=== PATIENT | female | born 1935 | race African-American/Black ===

== ENCOUNTER 2018-04-02 21:20 | Inpatient (IN) ==
[2018-04-02] MEDS ORDERED: SODIUM CHLORIDE 0.9% 500 ML IV STA ×2 (21:55)
[2018-04-02 22:59] LABS: Basophils # 0.1 10*3/uL (0.0-0.2); Basophils % 0.8 % (0.0-0.8); Eosinophils # 0.1 10*3/uL (0.0-0.87); Eosinophils % 0.7 % (0.00-10.9); Hematocrit 38.8 VOL% (35.7-47.0); Hemoglobin 12.9 GM/DL (12.0-16.0); Immature Granulocytes % 0.5 %; Immature Granulocytes Absolute 0.04 #; Lymphocytes # 1.7 10*3/uL (1.4-4.0); Lymphocytes % 19.5 % (21.3-54.2); Mean Corpuscular HGB Conc 33.2 GM/DL (32-36); Mean Corpuscular Hemoglobin 30 PG (27-34); Mean Corpuscular Volume 89.2 FL (87-102); Mean Platelet Volume 9.8 FL (9.6-12.0); Monocytes # 0.5 10*3/uL (0.11-0.8); Monocytes % 5.5 % (1.7-12.7); Neutrophils # 6.4 10*3/uL (1.4-7.4); Platelet Count 353 T/CUMM (130-400); Red Blood Count 4.35 MC/CUMM (3.8-5.5); Red Cell Distribution Width 12.9 % (9.3-17.3); White Blood Count 8.7 T/CUMM (4-12)
[2018-04-02 23:06] LABS: PT Patient Result 10.3 SECS
[2018-04-02 23:14] LABS: Ammonia < 10 UMOL/L (11-32)
[2018-04-02 23:19] LABS: Alanine Aminotransferase 16 U/L (13-56); Albumin 3.8 G/DL (3.4-5.0); Alkaline Phosphatase 78 U/L (45-117); Aspartate Amino Transferase 35 U/L (0-37); Blood Urea Nitrogen 17 MG/DL (7-18); Calcium 9.9 MG/DL (8.5-10.1); Glucose 94 MG/DL (74-106); Osmolality,Calculated 280.4 MOS/KG (273-304); Potassium 3.8 MMOL/L (3.5-5.1); Sodium 140 MMOL/L (136-145); Total Protein 7.2 G/DL (6.4-8.3)
[2018-04-02 23:39] LABS: Apearance,Urine CLOUDY (Clear); Bacteria,Urine Many /HPF (Few); Bilirubin,Urine Negative (Negative); Blood, Urine Moderate mg/dL (Negative); Glucose,Urine (UA) Negative (Negative); Ketones,Urine Negative (Negative); Mucus,Urine Occasional /LPF (Occasional); Nitrite,Urine Negative (Negative); Protein,Urine Negative; RBC,Urine 3 /HPF (0-4); Urine Color Yellow (Yellow); Urine Specific Gravity 1.008 (1.001-1.035); WBC,Urine 67 /HPF (0-6)
[2018-04-02] MEDS ORDERED: LEVOFLOXACIN INJ 500 MG in PREMIX 1 EACH IV STA (23:51)
[2018-04-02] MEDS ORDERED: cefTRIAXone 1,000 MG in SODIUM CHLORIDE 0.9% 100 ML IV STA (23:51)
[2018-04-03] MEDS ORDERED: cefTRIAXone 1,000 MG in SYRINGE 1 EACH IV STA (00:06)
[2018-04-03] MEDS ORDERED: DEXTROSE 50% 25 GM/50 ML VIAL IV PRN (01:50)
[2018-04-03] MEDS ORDERED: GLUCAGON 1 MG VIAL IM PRN (01:50)
[2018-04-03] MEDS ORDERED: ACETAMINOPHEN 325 MG TABLET PO PRN (01:50)
[2018-04-03] MEDS ORDERED: ONDANSETRON 4 MG/2 ML VIAL IV PRN (01:50)
[2018-04-03] MEDS ORDERED: INFLUENZA VIRUS VACCINE 0.5 ML SYRINGE IM ONE (01:57)
[2018-04-03] MEDS: SODIUM CHLORIDE 0.9% 1,000 ML IV SCH ×3 (02:00→21:45)
[2018-04-03] MEDS ORDERED: PNEUMOCOCCAL VACCINE (13 VALENT) 0.5 ML SYRINGE IM ONE (02:01)
[2018-04-03 06:05] LABS: Basophils # 0.1 10*3/uL (0.0-0.2); Basophils % 0.6 % (0.0-0.8); Eosinophils # 0.1 10*3/uL (0.0-0.87); Eosinophils % 0.9 % (0.00-10.9); Hematocrit 33.9 VOL% (35.7-47.0); Immature Granulocytes % 0.3 %; Immature Granulocytes Absolute 0.02 #; Lymphocytes # 1.9 10*3/uL (1.4-4.0); Lymphocytes % 24.7 % (21.3-54.2); Mean Corpuscular HGB Conc 32.4 GM/DL (32-36); Mean Corpuscular Hemoglobin 29 PG (27-34); Mean Platelet Volume 10.3 FL (9.6-12.0); Monocytes # 0.5 10*3/uL (0.11-0.8); Monocytes % 6.3 % (1.7-12.7); Neutrophils # 5.2 10*3/uL (1.4-7.4); Neutrophils % 67.2 % (38.7-73.9); Platelet Count 316 T/CUMM (130-400); Red Blood Count 3.81 MC/CUMM (3.8-5.5); Red Cell Distribution Width 12.9 % (9.3-17.3); White Blood Count 7.7 T/CUMM (4-12)
[2018-04-03 06:38] LABS: Bilirubin,Total 1.1 MG/DL (0.2-1.0); Calcium 9.7 MG/DL (8.5-10.1); Osmolality,Calculated 278.4 MOS/KG (273-304); Potassium 4.6 MMOL/L (3.5-5.1); Risk Ratio 3.21; Total Protein 6.4 G/DL (6.4-8.3); VLDL CHOLESTEROL 14.4 MG/DL
[2018-04-03] MEDS: INSULIN REGULAR 100 UNIT/ML SUBCUT SCH ×3 (07:25→18:32)
[2018-04-03] MEDS ORDERED: cefTRIAXone 1,000 MG VIAL IM SCH (08:30)
[2018-04-03] MEDS: DOCUSATE SODIUM 100 MG CAPSULE PO SCH ×2 (09:02→20:20)
[2018-04-03] MEDS: PANTOPRAZOLE 40 MG TABLET PO SCH (09:02)
[2018-04-03] MEDS: ENOXAPARIN 40 MG/0.4 ML SYRINGE SUBCUT SCH (09:02)
[2018-04-03] MEDS: cefTRIAXone 1,000 MG VIAL IV SCH (11:16)
[2018-04-03] MEDS: traMADol 50 MG TABLET PO SCH (20:20)
[2018-04-03] MEDS: FUROSEMIDE 20 MG TABLET PO SCH (20:20)
[2018-04-03] MEDS: FLUOCINONIDE E 0.05% CREAM 15 GM TUBE TOP SCH (20:24)
[2018-04-04] MEDS ORDERED: LEVOFLOXACIN INJ 250 MG in PREMIX 1 EACH IV SCH
[2018-04-04] MEDS: INSULIN REGULAR 100 UNIT/ML SUBCUT SCH ×4 (00:19→17:42)
[2018-04-04 05:38] LABS: Basophils % 0.7 % (0.0-0.8); Eosinophils # 0.2 10*3/uL (0.0-0.87); Eosinophils % 3.1 % (0.00-10.9); Hematocrit 29.3 VOL% (35.7-47.0); Hemoglobin 9.6 GM/DL (12.0-16.0); Immature Granulocytes % 0.3 %; Immature Granulocytes Absolute 0.02 #; Lymphocytes # 2.1 10*3/uL (1.4-4.0); Lymphocytes % 35.3 % (21.3-54.2); Mean Corpuscular HGB Conc 32.8 GM/DL (32-36); Mean Corpuscular Hemoglobin 29 PG (27-34); Mean Corpuscular Volume 89.3 FL (87-102); Monocytes # 0.5 10*3/uL (0.11-0.8); Monocytes % 8.2 % (1.7-12.7); Neutrophils # 3.1 10*3/uL (1.4-7.4); Neutrophils % 52.4 % (38.7-73.9); Platelet Count 266 T/CUMM (130-400); Red Blood Count 3.28 MC/CUMM (3.8-5.5); White Blood Count 5.8 T/CUMM (4-12)
[2018-04-04] MEDS: SODIUM CHLORIDE 0.9% 1,000 ML IV SCH ×3 (05:47→21:04)
[2018-04-04 06:04] LABS: Albumin 2.4 G/DL (3.4-5.0); Bilirubin,Total 0.6 MG/DL (0.2-1.0); Calcium 8.5 MG/DL (8.5-10.1); Ferritin 54.5 ng/ml (8-252); Free T4 (Free Thyroxine) 1.15 NG/DL (0.76-1.46); Potassium 3.6 MMOL/L (3.5-5.1); Thyroid Stimulating Hormone 0.824 uIU/ml (0.358-3.74); Total Protein 5.5 G/DL (6.4-8.3)
[2018-04-04] MEDS: LISINOPRIL 20 MG TABLET PO SCH (08:49)
[2018-04-04] MEDS: PANTOPRAZOLE 40 MG TABLET PO SCH (08:49)
[2018-04-04] MEDS: ENOXAPARIN 40 MG/0.4 ML SYRINGE SUBCUT SCH (08:49)
[2018-04-04] MEDS: FUROSEMIDE 20 MG TABLET PO SCH ×2 (08:49→21:03)
[2018-04-04] MEDS: DOCUSATE SODIUM 100 MG CAPSULE PO SCH ×2 (08:49→21:03)
[2018-04-04] MEDS: traMADol 50 MG TABLET PO SCH ×2 (08:49→21:03)
[2018-04-04] MEDS: INSULIN NPH/REGULAR 70/30 100 UNIT/ML SUBCUT SCH (08:50)
[2018-04-04] MEDS: cefTRIAXone 1,000 MG VIAL IV SCH (09:26)
[2018-04-04] MEDS: FLUOCINONIDE E 0.05% CREAM 15 GM TUBE TOP SCH ×2 (09:27→21:04)
[2018-04-04] MEDS: methylPREDNISolone SOD SUC 40 MG/1 ML VIAL IV SCH ×2 (09:29→16:21)
[2018-04-05] MEDS: INSULIN REGULAR 100 UNIT/ML SUBCUT SCH ×4 (00:11→18:10)
[2018-04-05] MEDS: methylPREDNISolone SOD SUC 40 MG/1 ML VIAL IV SCH (00:17)
[2018-04-05] MEDS: SODIUM CHLORIDE 0.9% 1,000 ML IV SCH ×3 (01:20→20:31)
[2018-04-05 04:58] LABS: Basophils % 0.1 % (0.0-0.8); Hematocrit 30.8 VOL% (35.7-47.0); Hemoglobin 10.2 GM/DL (12.0-16.0); Immature Granulocytes % 0.4 %; Immature Granulocytes Absolute 0.03 #; Lymphocytes # 1.3 10*3/uL (1.4-4.0); Lymphocytes % 16.9 % (21.3-54.2); Mean Corpuscular HGB Conc 33.1 GM/DL (32-36); Mean Corpuscular Hemoglobin 30 PG (27-34); Mean Corpuscular Volume 89.5 FL (87-102); Monocytes # 0.3 10*3/uL (0.11-0.8); Monocytes % 4.2 % (1.7-12.7); Neutrophils # 5.8 10*3/uL (1.4-7.4); Neutrophils % 78.4 % (38.7-73.9); Platelet Count 275 T/CUMM (130-400); Red Blood Count 3.44 MC/CUMM (3.8-5.5); White Blood Count 7.4 T/CUMM (4-12)
[2018-04-05 05:18] LABS: Calcium 8.6 MG/DL (8.5-10.1); Potassium 4.2 MMOL/L (3.5-5.1)
[2018-04-05] MEDS: FLUOCINONIDE E 0.05% CREAM 15 GM TUBE TOP SCH (09:10)
[2018-04-05] MEDS: INSULIN NPH/REGULAR 70/30 100 UNIT/ML SUBCUT SCH (09:20)
[2018-04-05] MEDS: PANTOPRAZOLE 40 MG TABLET PO SCH (09:20)
[2018-04-05] MEDS: LISINOPRIL 20 MG TABLET PO SCH (09:20)
[2018-04-05] MEDS: DOCUSATE SODIUM 100 MG CAPSULE PO SCH ×2 (09:20→21:14)
[2018-04-05] MEDS: traMADol 50 MG TABLET PO SCH ×2 (09:20→21:14)
[2018-04-05] MEDS: FUROSEMIDE 20 MG TABLET PO SCH ×2 (09:20→21:15)
[2018-04-05] MEDS: ENOXAPARIN 40 MG/0.4 ML SYRINGE SUBCUT SCH (09:20)
[2018-04-05] MEDS: cefTRIAXone 1,000 MG VIAL IV SCH (13:34)
[2018-04-05] MEDS ORDERED: TUBERCULIN SKIN TEST 0.1 ML SYRINGE INTRADERM ONE (13:51)
[2018-04-06] MEDS: INSULIN REGULAR 100 UNIT/ML SUBCUT SCH ×5 (00:05→17:02)
[2018-04-06] MEDS: FLUOCINONIDE E 0.05% CREAM 15 GM TUBE TOP SCH ×3 (02:10→21:04)
[2018-04-06] MEDS: SODIUM CHLORIDE 0.9% 1,000 ML IV SCH (04:35)
[2018-04-06 05:56] LABS: Basophils # 0.1 10*3/uL (0.0-0.2); Basophils % 0.7 % (0.0-0.8); Eosinophils # 0.2 10*3/uL (0.0-0.87); Hematocrit 30.5 VOL% (35.7-47.0); Hemoglobin 9.9 GM/DL (12.0-16.0); Immature Granulocytes % 0.4 %; Immature Granulocytes Absolute 0.03 #; Lymphocytes # 2.9 10*3/uL (1.4-4.0); Mean Corpuscular HGB Conc 32.5 GM/DL (32-36); Mean Corpuscular Hemoglobin 29 PG (27-34); Mean Platelet Volume 9.2 FL (9.6-12.0); Monocytes # 0.5 10*3/uL (0.11-0.8); Monocytes % 5.9 % (1.7-12.7); Neutrophils # 4.1 10*3/uL (1.4-7.4); Platelet Count 273 T/CUMM (130-400); Red Blood Count 3.39 MC/CUMM (3.8-5.5); Red Cell Distribution Width 13.2 % (9.3-17.3); White Blood Count 7.6 T/CUMM (4-12)
[2018-04-06 06:01] LABS: Calcium 8.3 MG/DL (8.5-10.1); Potassium 4.2 MMOL/L (3.5-5.1)
[2018-04-06] MEDS: INSULIN NPH/REGULAR 70/30 100 UNIT/ML SUBCUT SCH (08:16)
[2018-04-06] MEDS: PANTOPRAZOLE 40 MG TABLET PO SCH (08:25)
[2018-04-06] MEDS: DOCUSATE SODIUM 100 MG CAPSULE PO SCH ×2 (08:25→20:19)
[2018-04-06] MEDS: ENOXAPARIN 40 MG/0.4 ML SYRINGE SUBCUT SCH (08:26)
[2018-04-06] MEDS: traMADol 50 MG TABLET PO SCH ×2 (08:26→20:19)
[2018-04-06] MEDS: FUROSEMIDE 20 MG TABLET PO SCH ×2 (08:26→20:19)
[2018-04-06] MEDS: LISINOPRIL 20 MG TABLET PO SCH (08:30)
[2018-04-06] MEDS ORDERED: FUROSEMIDE 40 MG/4 ML VIAL IV ONE (13:13)
[2018-04-06] MEDS: cefTRIAXone 1,000 MG VIAL IV SCH (17:10)
[2018-04-07 05:32] LABS: Basophils % 0.6 % (0.0-0.8); Eosinophils # 0.3 10*3/uL (0.0-0.87); Eosinophils % 3.6 % (0.00-10.9); Hematocrit 32.4 VOL% (35.7-47.0); Hemoglobin 10.5 GM/DL (12.0-16.0); Immature Granulocytes % 0.4 %; Immature Granulocytes Absolute 0.03 #; Lymphocytes # 2.7 10*3/uL (1.4-4.0); Lymphocytes % 36.9 % (21.3-54.2); Mean Corpuscular HGB Conc 32.4 GM/DL (32-36); Mean Corpuscular Hemoglobin 29 PG (27-34); Mean Platelet Volume 9.9 FL (9.6-12.0); Monocytes # 0.5 10*3/uL (0.11-0.8); Monocytes % 6.8 % (1.7-12.7); Neutrophils # 3.8 10*3/uL (1.4-7.4); Neutrophils % 51.7 % (38.7-73.9); Platelet Count 331 T/CUMM (130-400); Red Blood Count 3.64 MC/CUMM (3.8-5.5); White Blood Count 7.2 T/CUMM (4-12)
[2018-04-07 05:52] LABS: Calcium 8.5 MG/DL (8.5-10.1); Osmolality,Calculated 282.1 MOS/KG (273-304)
[2018-04-07 05:58] LABS: Albumin 2.5 G/DL (3.4-5.0); Bilirubin,Total 0.4 MG/DL (0.2-1.0); Calcium 8.4 MG/DL (8.5-10.1); Osmolality,Calculated 281.1 MOS/KG (273-304)
[2018-04-07] MEDS: INSULIN REGULAR 100 UNIT/ML SUBCUT SCH ×2 (06:30→14:37)
[2018-04-07] MEDS: INSULIN NPH/REGULAR 70/30 100 UNIT/ML SUBCUT SCH (07:18)
[2018-04-07] MEDS: LISINOPRIL 20 MG TABLET PO SCH (09:52)
[2018-04-07] MEDS: FUROSEMIDE 20 MG TABLET PO SCH ×2 (09:53→21:38)
[2018-04-07] MEDS: PANTOPRAZOLE 40 MG TABLET PO SCH (09:53)
[2018-04-07] MEDS: ENOXAPARIN 40 MG/0.4 ML SYRINGE SUBCUT SCH (09:53)
[2018-04-07] MEDS: traMADol 50 MG TABLET PO SCH ×2 (09:53→21:38)
[2018-04-07] MEDS: DOCUSATE SODIUM 100 MG CAPSULE PO SCH ×2 (09:53→21:38)
[2018-04-07] MEDS: cefTRIAXone 1,000 MG VIAL IV SCH (16:55)
[2018-04-07] MEDS: FLUOCINONIDE E 0.05% CREAM 15 GM TUBE TOP SCH ×2 (21:38→21:39)
[2018-04-08] MEDS: INSULIN REGULAR 100 UNIT/ML SUBCUT SCH ×2 (08:36→11:40)
[2018-04-08] MEDS: LISINOPRIL 20 MG TABLET PO SCH (08:38)
[2018-04-08] MEDS: DOCUSATE SODIUM 100 MG CAPSULE PO SCH (08:38)
[2018-04-08] MEDS: traMADol 50 MG TABLET PO SCH (08:38)
[2018-04-08] MEDS: FUROSEMIDE 20 MG TABLET PO SCH (08:38)
[2018-04-08] MEDS: ENOXAPARIN 40 MG/0.4 ML SYRINGE SUBCUT SCH (08:38)
[2018-04-08] MEDS: INSULIN NPH/REGULAR 70/30 100 UNIT/ML SUBCUT SCH (08:38)
[2018-04-08] MEDS: PANTOPRAZOLE 40 MG TABLET PO SCH (08:38)
[2018-04-08] MEDS ORDERED: LEVOFLOXACIN 500 MG TABLET PO SCH (09:00)
[2018-04-08] MEDS: cefTRIAXone 1,000 MG VIAL IV SCH (10:53)
[2018-04-08] MEDS: FLUOCINONIDE E 0.05% CREAM 15 GM TUBE TOP SCH (10:54)
[2018-04-08 12:06] VITALS: BP 116/60
== END 2018-04-08 13:08 | disposition swing bed (61) | DRG 690 ==
LOC: N.ED 21:20 → N.EDINP 04-03 01:03 → N.5E 04-03 01:08
PROVIDERS: ADMIT Family Medicine; ATTEND Family Medicine

== ENCOUNTER 2018-05-07 13:07 | Inpatient (IN) ==
[2018-05-07] MEDS ORDERED: SODIUM CHLORIDE 0.9% 500 ML IV STA (13:35)
[2018-05-07 14:08] LABS: Amorphous Crystals,Urine Occasional /HPF (Few); Apearance,Urine Slightly Hazy (Clear); Bacteria,Urine Occasional /HPF (Few); Bilirubin,Urine Negative (Negative); Blood, Urine Negative (Negative); Glucose,Urine (UA) Negative (Negative); Hyaline Casts,Urine 6 /LPF (0-3); Ketones,Urine Negative (Negative); Mucus,Urine Occasional /LPF (Occasional); Nitrite,Urine Negative (Negative); Protein,Urine Negative; Squamous Epithelial Cell,Urine Occasional /HPF (0-10); Urine Color Yellow (Yellow); Urine Specific Gravity 1.012 (1.001-1.035); WBC,Urine 2 /HPF (0-6)
[2018-05-07 14:37] LABS: Barbiturates Screen,Urine Negative (Negative); Benzodiazepines Screen,Urine Negative (Negative); Cannabinoid Screen,Urine Negative (Negative); Opiate Screen,Urine Negative (Negative); Phencyclidine Screen,Urine Negative (Negative)
[2018-05-07 14:46] LABS: Basophils # 0.1 10*3/uL (0.0-0.2); Basophils % 0.4 % (0.0-0.8); Eosinophils # 0.1 10*3/uL (0.0-0.87); Eosinophils % 0.5 % (0.00-10.9); Hematocrit 36.6 VOL% (35.7-47.0); Hemoglobin 11.9 GM/DL (12.0-16.0); Immature Granulocytes % 0.4 %; Immature Granulocytes Absolute 0.05 #; Lymphocytes # 1.8 10*3/uL (1.4-4.0); Lymphocytes % 14.2 % (21.3-54.2); Mean Corpuscular HGB Conc 32.5 GM/DL (32-36); Mean Corpuscular Hemoglobin 29 PG (27-34); Mean Corpuscular Volume 88.4 FL (87-102); Mean Platelet Volume 9.9 FL (9.6-12.0); Monocytes # 0.8 10*3/uL (0.11-0.8); Monocytes % 6.8 % (1.7-12.7); Neutrophils # 9.6 10*3/uL (1.4-7.4); Neutrophils % 77.7 % (38.7-73.9); Platelet Count 384 T/CUMM (130-400); Red Blood Count 4.14 MC/CUMM (3.8-5.5); Red Cell Distribution Width 12.4 % (9.3-17.3); White Blood Count 12.4 T/CUMM (4-12)
[2018-05-07 15:01] LABS: INR 0.9; PT Patient Result 10.3 SECS; Partial Thromboplastin Time 25.9 SECS (0-40)
[2018-05-07 15:08] LABS: Albumin 3.3 G/DL (3.4-5.0); Bilirubin,Total 0.6 MG/DL (0.2-1.0); Calcium 10.2 MG/DL (8.5-10.1); Osmolality,Calculated 277.2 MOS/KG (273-304); Potassium 4.8 MMOL/L (3.5-5.1); Total Protein 8.2 G/DL (6.4-8.3)
[2018-05-07] MEDS ORDERED: SODIUM CHLORIDE 0.9% 1,000 ML IV STA (15:32)
[2018-05-07] MEDS ORDERED: ONDANSETRON 4 MG/2 ML VIAL IV PRN (16:58)
[2018-05-07] MEDS ORDERED: GLUCAGON 1 MG VIAL IM PRN (16:58)
[2018-05-07] MEDS ORDERED: DEXTROSE 50% 25 GM/50 ML VIAL IV PRN (16:58)
[2018-05-07] MEDS ORDERED: ACETAMINOPHEN 325 MG TABLET PO PRN (16:58)
[2018-05-07] MEDS: SODIUM CHLORIDE 0.9% 1,000 ML IV SCH (17:44)
[2018-05-07] MEDS: INSULIN LISPRO 100 UNIT/ML SUBCUT SCH ×2 (17:44→21:56)
[2018-05-07] MEDS: DOCUSATE SODIUM 100 MG CAPSULE PO SCH (21:54)
[2018-05-08] MEDS: SODIUM CHLORIDE 0.9% 1,000 ML IV SCH ×3 (03:50→20:34)
[2018-05-08] MEDS ORDERED: traMADol 50 MG TABLET PO PRN (07:36)
[2018-05-08 08:31] LABS: Osmolality,Calculated 281.7 MOS/KG (273-304); Potassium 4.5 MMOL/L (3.5-5.1)
[2018-05-08] MEDS: INSULIN LISPRO 100 UNIT/ML SUBCUT SCH ×4 (08:46→22:58)
[2018-05-08] MEDS: INSULIN NPH/REGULAR 70/30 100 UNIT/ML SUBCUT SCH (08:47)
[2018-05-08] MEDS: LOSARTAN 50 MG TABLET PO SCH (08:48)
[2018-05-08] MEDS: hydrOXYzine HCL 10 MG TABLET PO SCH ×4 (08:48→20:35)
[2018-05-08] MEDS: FUROSEMIDE 20 MG TABLET PO SCH ×2 (08:49→16:18)
[2018-05-08] MEDS: PANTOPRAZOLE 40 MG TABLET PO SCH (08:49)
[2018-05-08] MEDS: DOCUSATE SODIUM 100 MG CAPSULE PO SCH ×2 (08:51→20:35)
[2018-05-08] MEDS: SKIN HEALING OINT (AQUAPHOR) 50 GM TUBE TOP SCH (16:19)
[2018-05-09] MEDS: SODIUM CHLORIDE 0.9% 1,000 ML IV SCH ×3 (05:08→20:48)
[2018-05-09] MEDS: INSULIN LISPRO 100 UNIT/ML SUBCUT SCH ×4 (07:49→20:58)
[2018-05-09] MEDS: INSULIN NPH/REGULAR 70/30 100 UNIT/ML SUBCUT SCH (07:57)
[2018-05-09 08:05] LABS: Basophils % 0.4 % (0.0-0.8); Eosinophils # 0.2 10*3/uL (0.0-0.87); Eosinophils % 2.1 % (0.00-10.9); Hematocrit 28.8 VOL% (35.7-47.0); Hemoglobin 9.6 GM/DL (12.0-16.0); Immature Granulocytes % 0.7 %; Immature Granulocytes Absolute 0.05 #; Lymphocytes # 2.2 10*3/uL (1.4-4.0); Lymphocytes % 29.1 % (21.3-54.2); Mean Corpuscular HGB Conc 33.3 GM/DL (32-36); Mean Corpuscular Hemoglobin 29 PG (27-34); Mean Corpuscular Volume 88.1 FL (87-102); Mean Platelet Volume 9.2 FL (9.6-12.0); Monocytes # 0.6 10*3/uL (0.11-0.8); Monocytes % 7.6 % (1.7-12.7); Neutrophils # 4.5 10*3/uL (1.4-7.4); Neutrophils % 60.1 % (38.7-73.9); Platelet Count 294 T/CUMM (130-400); Red Blood Count 3.27 MC/CUMM (3.8-5.5); Red Cell Distribution Width 12.5 % (9.3-17.3); White Blood Count 7.5 T/CUMM (4-12)
[2018-05-09 08:34] LABS: Albumin 2.3 G/DL (3.4-5.0); Bilirubin,Total 0.4 MG/DL (0.2-1.0); Calcium 8.7 MG/DL (8.5-10.1); Osmolality,Calculated 277.7 MOS/KG (273-304); Potassium 4.5 MMOL/L (3.5-5.1)
[2018-05-09] MEDS: DOCUSATE SODIUM 100 MG CAPSULE PO SCH ×2 (09:09→20:58)
[2018-05-09] MEDS: LOSARTAN 50 MG TABLET PO SCH (09:09)
[2018-05-09] MEDS: FUROSEMIDE 20 MG TABLET PO SCH ×2 (09:09→16:18)
[2018-05-09] MEDS: PANTOPRAZOLE 40 MG TABLET PO SCH (09:09)
[2018-05-09] MEDS: hydrOXYzine HCL 10 MG TABLET PO SCH ×4 (09:09→20:58)
[2018-05-09] MEDS: SKIN HEALING OINT (AQUAPHOR) 50 GM TUBE TOP SCH (09:10)
[2018-05-09] MEDS ORDERED: TUBERCULIN SKIN TEST 0.1 ML SYRINGE INTRADERM ONE (13:30)
[2018-05-10 04:47] LABS: Basophils # 0.1 10*3/uL (0.0-0.2); Basophils % 0.7 % (0.0-0.8); Eosinophils # 0.3 10*3/uL (0.0-0.87); Eosinophils % 3.8 % (0.00-10.9); Hematocrit 31.4 VOL% (35.7-47.0); Hemoglobin 10.1 GM/DL (12.0-16.0); Immature Granulocytes % 0.7 %; Immature Granulocytes Absolute 0.05 #; Lymphocytes # 2.4 10*3/uL (1.4-4.0); Lymphocytes % 32.4 % (21.3-54.2); Mean Corpuscular HGB Conc 32.2 GM/DL (32-36); Mean Corpuscular Hemoglobin 29 PG (27-34); Mean Corpuscular Volume 90.2 FL (87-102); Mean Platelet Volume 10.1 FL (9.6-12.0); Monocytes # 0.7 10*3/uL (0.11-0.8); Neutrophils % 53.4 % (38.7-73.9); Platelet Count 336 T/CUMM (130-400); Red Blood Count 3.48 MC/CUMM (3.8-5.5); Red Cell Distribution Width 12.5 % (9.3-17.3); White Blood Count 7.4 T/CUMM (4-12)
[2018-05-10] MEDS: SODIUM CHLORIDE 0.9% 1,000 ML IV SCH (06:20)
[2018-05-10] MEDS: INSULIN LISPRO 100 UNIT/ML SUBCUT SCH ×2 (09:06→11:38)
[2018-05-10] MEDS: DOCUSATE SODIUM 100 MG CAPSULE PO SCH (09:06)
[2018-05-10] MEDS: FUROSEMIDE 20 MG TABLET PO SCH (09:07)
[2018-05-10] MEDS: hydrOXYzine HCL 10 MG TABLET PO SCH ×2 (09:07→13:41)
[2018-05-10] MEDS: PANTOPRAZOLE 40 MG TABLET PO SCH (09:07)
[2018-05-10] MEDS: LOSARTAN 50 MG TABLET PO SCH (09:07)
[2018-05-10] MEDS: SKIN HEALING OINT (AQUAPHOR) 50 GM TUBE TOP SCH (09:08)
[2018-05-10] MEDS: INSULIN NPH/REGULAR 70/30 100 UNIT/ML SUBCUT SCH (09:08)
[2018-05-10 11:43] VITALS: BP 167/102
== END 2018-05-10 15:24 | DRG 684 ==
LOC: N.ED 13:07 → N.EDINP 15:37 → N.2E 16:45
PROVIDERS: ADMIT Family Medicine; ATTEND Family Medicine

== ENCOUNTER 2021-01-04 07:50 | Inpatient (IN) ==
[2021-01-04] MEDS ORDERED: SODIUM CHLORIDE 0.9% 1,000 ML IV STA (08:15)
[2021-01-04] MEDS ORDERED: ONDANSETRON 4 MG/2 ML VIAL IV STA (08:15)
[2021-01-04] MEDS ORDERED: PANTOPRAZOLE 40 MG VIAL IV STA ×2 (08:15→09:13)
[2021-01-04 08:50] LABS: Basophils # 0.1 10*3/uL (0.0-0.2); Basophils % 0.4 % (0.0-0.8); Eosinophils % 0.1 % (0.00-10.9); Hematocrit 29.7 VOL% (35.7-47.0); Hemoglobin 9.6 GM/DL (12.0-16.0); Immature Granulocytes % 0.5 %; Immature Granulocytes Absolute 0.06 #; Lymphocytes # 1.6 10*3/uL (1.4-4.0); Lymphocytes % 12.6 % (21.3-54.2); Mean Corpuscular HGB Conc 32.3 GM/DL (32-36); Mean Corpuscular Volume 89.2 FL (87-102); Monocytes % 3.3 % (1.7-12.7); Neutrophils % 83.1 % (38.7-73.9); Platelet Count 512 T/CUMM (130-400); Red Blood Count 3.33 MC/CUMM (3.8-5.5); White Blood Count 12.7 T/CUMM (4-12)
[2021-01-04 08:58] LABS: Amorphous Crystals,Urine Few /HPF (Few); Bacteria,Urine Occasional /HPF (Few); Bilirubin,Urine Negative (Negative); Blood, Urine Negative (Negative); Glucose,Urine (UA) Negative (Negative); Hyaline Casts,Urine 9 /LPF (0-3); Ketones,Urine 5 mg/dL (Negative); Mucus,Urine Few /LPF (Occasional); Nitrite,Urine Negative (Negative); Protein,Urine Negative; Squamous Epithelial Cell,Urine Occasional /HPF (0-10); Urine Appearance CLEAR (Clear); Urine Color Amber (Yellow); Urine Specific Gravity 1.015 (1.001-1.035)
[2021-01-04 09:09] LABS: Albumin 2.2 G/DL (3.4-5.0); Bilirubin,Total 0.5 MG/DL (0.20-1.00); Calcium 9.3 MG/DL (8.5-10.1); Osmolality,Calculated 282.4 MOS/KG (273-304); Potassium 4.8 MMOL/L (3.5-5.1); Total Protein 6.2 G/DL (6.4-8.2)
[2021-01-04 09:18] LABS: PT Patient Result 10.9 SECS (10.5-12.0); Partial Thromboplastin Time 22.8 SECS (23.9-33.8)
[2021-01-04] MEDS ORDERED: LACTATED RINGERS 1,000 ML IV SCH (10:30)
[2021-01-04] MEDS ORDERED: propofoL 200 MG/20 ML VIAL IV ONE (11:47)
[2021-01-04] MEDS ORDERED: LIDOCAINE 2% 5 ML VIAL ONE (11:47)
[2021-01-04] MEDS ORDERED: ETOMIDATE 20 MG/10 ML VIAL IV ONE (11:47)
[2021-01-04] MEDS ORDERED: ONDANSETRON 4 MG/2 ML VIAL IV PRN (13:25)
[2021-01-04] MEDS ORDERED: ACETAMINOPHEN 325 MG TABLET PO PRN (13:25)
[2021-01-04] MEDS ORDERED: BISACODYL 5 MG TABLET PO ONE (14:00)
[2021-01-04] MEDS: SODIUM CHLORIDE 0.9% 1,000 ML IV SCH (15:18)
[2021-01-04] MEDS ORDERED: POLYETHYLENE GLYCOL POWDER 255 GM BOTTLE PO ONE (18:00)
[2021-01-04] MEDS ORDERED: MAGNESIUM CITRATE 300 ML BOTTLE PO ONE (21:00)
[2021-01-04] MEDS: DOCUSATE SODIUM 100 MG CAPSULE PO SCH (21:07)
[2021-01-05] MEDS: SODIUM CHLORIDE 0.9% 1,000 ML IV SCH ×2 (00:48→05:55)
[2021-01-05 06:34] LABS: Basophils # 0.1 10*3/uL (0.0-0.2); Basophils % 0.7 % (0.0-0.8); Eosinophils # 0.1 10*3/uL (0.0-0.87); Eosinophils % 0.9 % (0.00-10.9); Hematocrit 27.6 VOL% (35.7-47.0); Hemoglobin 8.7 GM/DL (12.0-16.0); Immature Granulocytes % 0.5 %; Immature Granulocytes Absolute 0.06 #; Lymphocytes # 1.5 10*3/uL (1.4-4.0); Lymphocytes % 12.5 % (21.3-54.2); Mean Corpuscular HGB Conc 31.5 GM/DL (32-36); Mean Platelet Volume 9.3 FL (9.6-12.0); Monocytes % 5.8 % (1.7-12.7); Neutrophils % 79.6 % (38.7-73.9); Platelet Count 421 T/CUMM (130-400); Red Cell Distribution Width 13.2 % (9.3-17.3); White Blood Count 12.3 T/CUMM (4-12)
[2021-01-05 06:48] LABS: PT Patient Result 10.7 SECS (10.5-12.0)
[2021-01-05] MEDS ORDERED: LACTATED RINGERS 1,000 ML IV SCH (08:00)
[2021-01-05] MEDS ORDERED: PHENYLEPHRINE 1 MG/10 ML SYRINGE IV ONE (08:16)
[2021-01-05] MEDS ORDERED: LIDOCAINE 2% 5 ML VIAL ONE (08:16)
[2021-01-05] MEDS ORDERED: propofoL 200 MG/20 ML VIAL IV ONE (08:16)
[2021-01-05] MEDS: PANTOPRAZOLE 40 MG TABLET PO SCH (10:10)
[2021-01-05] MEDS: SODIUM CHLOR 0.9% KCL 20 MEQ 20 MEQ/1,000 ML BAG IV SCH ×2 (10:11→23:52)
[2021-01-05] MEDS: LOSARTAN 50 MG TABLET PO SCH (10:11)
[2021-01-05] MEDS: DOCUSATE SODIUM 100 MG CAPSULE PO SCH ×2 (10:11→20:56)
[2021-01-05] MEDS: INSULIN LISPRO 100 UNIT/ML SUBCUT SCH ×3 (12:25→21:23)
[2021-01-06 05:45] LABS: Basophils # 0.1 10*3/uL (0.0-0.2); Basophils % 1.1 % (0.0-0.8); Eosinophils # 0.2 10*3/uL (0.0-0.87); Eosinophils % 2.2 % (0.00-10.9); Hematocrit 31.9 VOL% (35.7-47.0); Hemoglobin 10.1 GM/DL (12.0-16.0); Immature Granulocytes % 0.7 %; Immature Granulocytes Absolute 0.06 #; Lymphocytes # 1.8 10*3/uL (1.4-4.0); Lymphocytes % 21.5 % (21.3-54.2); Mean Corpuscular HGB Conc 31.7 GM/DL (32-36); Mean Corpuscular Volume 91.7 FL (87-102); Mean Platelet Volume 9.6 FL (9.6-12.0); Monocytes % 4.1 % (1.7-12.7); Neutrophils % 70.4 % (38.7-73.9); Platelet Count 436 T/CUMM (130-400); Red Blood Count 3.48 MC/CUMM (3.8-5.5); Red Cell Distribution Width 13.2 % (9.3-17.3); White Blood Count 8.5 T/CUMM (4-12)
[2021-01-06 06:25] LABS: Albumin 2.5 G/DL (3.4-5.0); Bilirubin,Total 0.7 MG/DL (0.20-1.00); Calcium 9.4 MG/DL (8.5-10.1); Osmolality,Calculated 277.4 MOS/KG (273-304); Potassium 4.4 MMOL/L (3.5-5.1); Total Protein 6.3 G/DL (6.4-8.2)
[2021-01-06 06:32] LABS: Thyroid Stimulating Hormone 0.838 uIU/ml (0.358-3.74)
[2021-01-06] MEDS: INSULIN LISPRO 100 UNIT/ML SUBCUT SCH ×3 (07:47→17:25)
[2021-01-06] MEDS: LOSARTAN 50 MG TABLET PO SCH (08:11)
[2021-01-06] MEDS: PANTOPRAZOLE 40 MG TABLET PO SCH (08:11)
[2021-01-06] MEDS: DOCUSATE SODIUM 100 MG CAPSULE PO SCH (08:11)
[2021-01-06] MEDS: SODIUM CHLOR 0.9% KCL 20 MEQ 20 MEQ/1,000 ML BAG IV SCH ×2 (12:53→13:08)
[2021-01-06 16:14] VITALS: BP 153/84
== END 2021-01-06 19:08 | disposition home health service (06) | DRG 395 ==
LOC: EDBD → EDUNIT# → N.ED 07:50 → N.EDINP 09:07 → N.5E 10:28
PROVIDERS: ADMIT Family Medicine; ATTEND Family Medicine

== ENCOUNTER 2021-01-08 08:46 | Inpatient (IN) ==
[2021-01-08 09:39] LABS: Basophils # 0.1 10*3/uL (0.0-0.2); Basophils % 0.7 % (0.0-0.8); Eosinophils # 0.1 10*3/uL (0.0-0.87); Eosinophils % 0.9 % (0.00-10.9); Hemoglobin 7.6 GM/DL (12.0-16.0); Immature Granulocytes % 1.1 %; Immature Granulocytes Absolute 0.13 #; Lymphocytes # 2.9 10*3/uL (1.4-4.0); Lymphocytes % 23.6 % (21.3-54.2); Mean Corpuscular HGB Conc 31.7 GM/DL (32-36); Mean Corpuscular Volume 91.3 FL (87-102); Mean Platelet Volume 9.2 FL (9.6-12.0); Monocytes % 5.9 % (1.7-12.7); Neutrophils % 67.8 % (38.7-73.9); Platelet Count 441 T/CUMM (130-400); Red Blood Count 2.63 MC/CUMM (3.8-5.5); Red Cell Distribution Width 13.4 % (9.3-17.3); White Blood Count 12.1 T/CUMM (4-12)
[2021-01-08] MEDS ORDERED: SODIUM CHLORIDE 0.9% 1,000 ML IV PRN (12:00)
[2021-01-08 12:04] LABS: Alanine Aminotransferase 14 U/L (13-56); Albumin 1.9 G/DL (3.4-5.0); Alkaline Phosphatase 55 U/L (45-117); Aspartate Amino Transferase 34 U/L (0-37); Bilirubin,Total < 0.39 MG/DL (0.20-1.00); Blood Urea Nitrogen 11 MG/DL (7-18); Calcium 8.5 MG/DL (8.5-10.1); Carbon Dioxide 19 MMOL/L (21-32); Estimated Glom Filtration Rate 56 ML/MIN; Glucose 155 MG/DL (74-106); Osmolality,Calculated 274.8 MOS/KG (273-304); Potassium 4.9 MMOL/L (3.5-5.1); Sodium 137 MMOL/L (136-145); Total Protein 5.6 G/DL (6.4-8.2)
[2021-01-08] MEDS ORDERED: ACETAMINOPHEN 325 MG TABLET PO PRN (12:19)
[2021-01-08] MEDS ORDERED: ONDANSETRON 4 MG/2 ML VIAL IV PRN (12:19)
[2021-01-08] MEDS: SODIUM CHLORIDE 0.9% 1,000 ML IV SCH (13:00)
[2021-01-08] MEDS: PANTOPRAZOLE 40 MG VIAL IV SCH (20:29)
[2021-01-08] MEDS: DOCUSATE SODIUM 100 MG CAPSULE PO SCH (20:30)
[2021-01-08 23:25] LABS: PT Patient Result 10.7 SECS (10.5-12.0); Partial Thromboplastin Time 24.5 SECS (23.9-33.8)
[2021-01-09 05:57] LABS: Basophils # 0.1 10*3/uL (0.0-0.2); Basophils % 0.7 % (0.0-0.8); Eosinophils # 0.2 10*3/uL (0.0-0.87); Eosinophils % 1.5 % (0.00-10.9); Hematocrit 25.9 VOL% (35.7-47.0); Hemoglobin 8.6 GM/DL (12.0-16.0); Immature Granulocytes % 1.9 %; Immature Granulocytes Absolute 0.23 #; Lymphocytes # 2.3 10*3/uL (1.4-4.0); Lymphocytes % 18.6 % (21.3-54.2); Mean Corpuscular HGB Conc 33.2 GM/DL (32-36); Mean Corpuscular Volume 87.2 FL (87-102); Mean Platelet Volume 9.1 FL (9.6-12.0); Monocytes % 6.2 % (1.7-12.7); Neutrophils % 71.1 % (38.7-73.9); Red Blood Count 2.97 MC/CUMM (3.8-5.5); Red Cell Distribution Width 13.9 % (9.3-17.3); White Blood Count 12.2 T/CUMM (4-12)
[2021-01-09 06:13] LABS: Platelet Count 284 T/CUMM (130-400)
[2021-01-09] MEDS: SODIUM CHLORIDE 0.9% 1,000 ML IV SCH ×2 (06:32→08:11)
[2021-01-09] MEDS: LOSARTAN 50 MG TABLET PO SCH (08:11)
[2021-01-09] MEDS: MULTIVITAMIN (BEROCCA) TABLET PO SCH (08:11)
[2021-01-09] MEDS: DOCUSATE SODIUM 100 MG CAPSULE PO SCH ×2 (08:11→20:44)
[2021-01-09] MEDS: PANTOPRAZOLE 40 MG VIAL IV SCH ×2 (08:15→20:43)
[2021-01-09 08:55] LABS: Hematocrit 24.4 VOL% (35.7-47.0); Hemoglobin 8.4 GM/DL (12.0-16.0)
[2021-01-09] MEDS ORDERED: PANTOPRAZOLE 40 MG TABLET PO SCH (09:00)
[2021-01-09 17:25] LABS: Hematocrit 39.6 VOL% (35.7-47.0)
[2021-01-09 17:26] LABS: Hemoglobin 12.1 GM/DL (12.0-16.0)
[2021-01-10] MEDS: SODIUM CHLORIDE 0.9% 1,000 ML IV SCH ×4 (01:28→21:15)
[2021-01-10 06:24] LABS: Basophils # 0.1 10*3/uL (0.0-0.2); Basophils % 0.5 % (0.0-0.8); Eosinophils # 0.2 10*3/uL (0.0-0.87); Eosinophils % 1.6 % (0.00-10.9); Hematocrit 28.7 VOL% (35.7-47.0); Immature Granulocytes % 2.3 %; Immature Granulocytes Absolute 0.33 #; Lymphocytes % 13.7 % (21.3-54.2); Mean Corpuscular HGB Conc 33.1 GM/DL (32-36); Mean Corpuscular Volume 89.7 FL (87-102); Monocytes % 6.2 % (1.7-12.7); Neutrophils % 75.7 % (38.7-73.9); Red Cell Distribution Width 14.6 % (9.3-17.3); White Blood Count 14.6 T/CUMM (4-12)
[2021-01-10 06:27] LABS: Hemoglobin 9.5 GM/DL (12.0-16.0); Platelet Count 226 T/CUMM (130-400)
[2021-01-10] MEDS ORDERED: MAGNESIUM HYDROXIDE SUSP 30 ML UDCUP PO PRN (07:50)
[2021-01-10] MEDS: DOCUSATE SODIUM 100 MG CAPSULE PO SCH ×2 (11:13→21:24)
[2021-01-10] MEDS: LOSARTAN 50 MG TABLET PO SCH (11:13)
[2021-01-10] MEDS: MULTIVITAMIN (BEROCCA) TABLET PO SCH (11:13)
[2021-01-10] MEDS: PANTOPRAZOLE 40 MG VIAL IV SCH ×2 (11:13→21:24)
[2021-01-10] MEDS: INSULIN LISPRO 100 UNIT/ML SUBCUT SCH ×3 (12:20→22:42)
[2021-01-10] MEDS: POLYETHYLENE GLYCOL POWDER 17 GM PACK PO SCH ×2 (12:45→21:24)
[2021-01-10] MEDS: MENTHOL/ZINC OXIDE OINT 71 GM JAR TOP SCH ×2 (17:39→22:41)
[2021-01-11] MEDS ORDERED: SODIUM PHOSPHATE ENEMA 133 ML BOTTLE RECTAL ONE (06:00)
[2021-01-11 06:46] LABS: Basophils # 0.1 10*3/uL (0.0-0.2); Basophils % 0.5 % (0.0-0.8); Eosinophils # 0.3 10*3/uL (0.0-0.87); Eosinophils % 2.4 % (0.00-10.9); Hematocrit 27.9 VOL% (35.7-47.0); Hemoglobin 9.2 GM/DL (12.0-16.0); Immature Granulocytes % 1.7 %; Lymphocytes # 1.7 10*3/uL (1.4-4.0); Lymphocytes % 14.3 % (21.3-54.2); Mean Corpuscular Volume 90.6 FL (87-102); Mean Platelet Volume 9.3 FL (9.6-12.0); Monocytes % 6.6 % (1.7-12.7); Neutrophils % 74.5 % (38.7-73.9); Platelet Count 272 T/CUMM (130-400); Red Blood Count 3.08 MC/CUMM (3.8-5.5); Red Cell Distribution Width 14.6 % (9.3-17.3)
[2021-01-11 07:13] LABS: Albumin 1.4 G/DL (3.4-5.0); Bilirubin,Total 0.7 MG/DL (0.20-1.00); Calcium 8.1 MG/DL (8.5-10.1); Osmolality,Calculated 278.3 MOS/KG (273-304); Potassium 3.6 MMOL/L (3.5-5.1); Total Protein 4.4 G/DL (6.4-8.2)
[2021-01-11 07:48] LABS: INR 0.9; PT Patient Result 10.7 SECS (10.5-12.0)
[2021-01-11] MEDS ORDERED: LACTATED RINGERS 1,000 ML IV SCH (08:00)
[2021-01-11] MEDS: INSULIN LISPRO 100 UNIT/ML SUBCUT SCH ×4 (08:42→21:10)
[2021-01-11] MEDS ORDERED: EPINEPHrine 1 MG/ML VIAL ONE (09:41)
[2021-01-11] MEDS: LOSARTAN 50 MG TABLET PO SCH (11:09)
[2021-01-11] MEDS: MENTHOL/ZINC OXIDE OINT 71 GM JAR TOP SCH ×2 (11:09→21:09)
[2021-01-11] MEDS: PANTOPRAZOLE 40 MG VIAL IV SCH ×2 (11:09→21:01)
[2021-01-11] MEDS: MULTIVITAMIN (BEROCCA) TABLET PO SCH (11:09)
[2021-01-11] MEDS: DOCUSATE SODIUM 100 MG CAPSULE PO SCH ×2 (11:09→21:01)
[2021-01-11] MEDS: POLYETHYLENE GLYCOL POWDER 17 GM PACK PO SCH ×2 (11:09→21:00)
[2021-01-11] MEDS: SODIUM CHLORIDE 0.9% 1,000 ML IV SCH ×2 (11:10→20:56)
[2021-01-12 05:38] LABS: Basophils # 0.1 10*3/uL (0.0-0.2); Basophils % 0.9 % (0.0-0.8); Eosinophils # 0.3 10*3/uL (0.0-0.87); Eosinophils % 3.3 % (0.00-10.9); Hematocrit 27.9 VOL% (35.7-47.0); Hemoglobin 9.2 GM/DL (12.0-16.0); Immature Granulocytes % 1.2 %; Immature Granulocytes Absolute 0.12 #; Lymphocytes # 1.8 10*3/uL (1.4-4.0); Lymphocytes % 17.7 % (21.3-54.2); Mean Corpuscular Volume 90.6 FL (87-102); Mean Platelet Volume 8.6 FL (9.6-12.0); Monocytes % 6.5 % (1.7-12.7); Neutrophils % 70.4 % (38.7-73.9); Platelet Count 295 T/CUMM (130-400); Red Blood Count 3.08 MC/CUMM (3.8-5.5); Red Cell Distribution Width 14.9 % (9.3-17.3); White Blood Count 10.4 T/CUMM (4-12)
[2021-01-12 06:00] LABS: Calcium 7.9 MG/DL (8.5-10.1); Osmolality,Calculated 272.7 MOS/KG (273-304); Potassium 3.6 MMOL/L (3.5-5.1)
[2021-01-12] MEDS: INSULIN LISPRO 100 UNIT/ML SUBCUT SCH ×4 (08:41→22:14)
[2021-01-12] MEDS: MENTHOL/ZINC OXIDE OINT 71 GM JAR TOP SCH ×2 (09:01→22:14)
[2021-01-12] MEDS: POLYETHYLENE GLYCOL POWDER 17 GM PACK PO SCH ×2 (09:18→20:16)
[2021-01-12] MEDS: DOCUSATE SODIUM 100 MG CAPSULE PO SCH ×2 (09:19→20:16)
[2021-01-12] MEDS: MULTIVITAMIN (BEROCCA) TABLET PO SCH (09:19)
[2021-01-12] MEDS: LOSARTAN 50 MG TABLET PO SCH (09:19)
[2021-01-12] MEDS: PANTOPRAZOLE 40 MG VIAL IV SCH ×2 (09:26→20:16)
[2021-01-13] MEDS: SODIUM CHLORIDE 0.9% 1,000 ML IV SCH ×2 (02:52→11:57)
[2021-01-13 05:34] LABS: Osmolality,Calculated 281.8 MOS/KG (273-304); Potassium 2.8 MMOL/L (3.5-5.1)
[2021-01-13 05:48] LABS: Basophils # 0.1 10*3/uL (0.0-0.2); Basophils % 0.7 % (0.0-0.8); Eosinophils # 0.2 10*3/uL (0.0-0.87); Eosinophils % 2.6 % (0.00-10.9); Hematocrit 21.1 VOL% (35.7-47.0); Hemoglobin 6.9 GM/DL (12.0-16.0); Immature Granulocytes % 0.7 %; Immature Granulocytes Absolute 0.05 #; Lymphocytes # 1.1 10*3/uL (1.4-4.0); Lymphocytes % 14.6 % (21.3-54.2); Mean Corpuscular HGB Conc 32.7 GM/DL (32-36); Mean Corpuscular Volume 92.1 FL (87-102); Mean Platelet Volume 8.8 FL (9.6-12.0); Neutrophils % 74.4 % (38.7-73.9); Platelet Count 238 T/CUMM (130-400); Red Blood Count 2.29 MC/CUMM (3.8-5.5); Red Cell Distribution Width 14.9 % (9.3-17.3); White Blood Count 7.3 T/CUMM (4-12)
[2021-01-13] MEDS ORDERED: SODIUM CHLORIDE 0.9% 1,000 ML IV PRN (07:08)
[2021-01-13] MEDS: INSULIN LISPRO 100 UNIT/ML SUBCUT SCH ×4 (07:15→21:36)
[2021-01-13] MEDS: LOSARTAN 50 MG TABLET PO SCH (08:34)
[2021-01-13] MEDS: MULTIVITAMIN (BEROCCA) TABLET PO SCH (08:34)
[2021-01-13] MEDS: DOCUSATE SODIUM 100 MG CAPSULE PO SCH ×2 (08:35→22:13)
[2021-01-13] MEDS: MENTHOL/ZINC OXIDE OINT 71 GM JAR TOP SCH ×2 (08:35→22:13)
[2021-01-13] MEDS: POLYETHYLENE GLYCOL POWDER 17 GM PACK PO SCH ×2 (08:35→22:17)
[2021-01-13] MEDS ORDERED: POTASSIUM CHLORIDE INJ 20 MEQ in SODIUM CHLORIDE 0.9% 1,000 ML IV SCH (09:00)
[2021-01-13 11:41] LABS: Hemoglobin 10.1 GM/DL (12.0-16.0)
[2021-01-13] MEDS ORDERED: DEXTROSE 50% 25 GM/50 ML VIAL IV PRN (11:54)
[2021-01-13] MEDS ORDERED: GLUCAGON 1 MG VIAL IM PRN (11:54)
[2021-01-13] MEDS: PANTOPRAZOLE 40 MG VIAL IV SCH (11:57)
[2021-01-13] MEDS ORDERED: PANTOPRAZOLE 40 MG VIAL IV ONE ×2 (13:48→21:00)
[2021-01-13] MEDS: SODIUM CHLOR 0.9% KCL 20 MEQ 20 MEQ/1,000 ML BAG IV SCH (14:38)
[2021-01-13] MEDS: POTASSIUM CHLORIDE RIDER 10 MEQ/100 ML PREMIX IV SCH ×5 (14:41→18:40)
[2021-01-13 16:00] LABS: Hematocrit 35.5 VOL% (35.7-47.0)
[2021-01-14] MEDS: SODIUM CHLOR 0.9% KCL 20 MEQ 20 MEQ/1,000 ML BAG IV SCH ×3 (03:30→21:45)
[2021-01-14 06:33] LABS: Basophils # 0.1 10*3/uL (0.0-0.2); Basophils % 0.8 % (0.0-0.8); Eosinophils # 0.3 10*3/uL (0.0-0.87); Eosinophils % 2.6 % (0.00-10.9); Hematocrit 38.3 VOL% (35.7-47.0); Hemoglobin 12.5 GM/DL (12.0-16.0); Immature Granulocytes % 0.7 %; Immature Granulocytes Absolute 0.07 #; Lymphocytes # 1.3 10*3/uL (1.4-4.0); Lymphocytes % 12.8 % (21.3-54.2); Mean Corpuscular HGB Conc 32.6 GM/DL (32-36); Mean Corpuscular Volume 89.3 FL (87-102); Mean Platelet Volume 8.5 FL (9.6-12.0); Monocytes % 6.6 % (1.7-12.7); Neutrophils % 76.5 % (38.7-73.9); Platelet Count 336 T/CUMM (130-400); Red Blood Count 4.29 MC/CUMM (3.8-5.5); White Blood Count 10.4 T/CUMM (4-12)
[2021-01-14 07:04] LABS: Calcium 8.2 MG/DL (8.5-10.1); Osmolality,Calculated 271.7 MOS/KG (273-304); Potassium 4.3 MMOL/L (3.5-5.1)
[2021-01-14] MEDS ORDERED: ETOMIDATE 20 MG/10 ML VIAL IV ONE (09:20)
[2021-01-14] MEDS ORDERED: propofoL 200 MG/20 ML VIAL IV ONE (09:20)
[2021-01-14] MEDS ORDERED: LIDOCAINE 2% 5 ML VIAL ONE (09:20)
[2021-01-14] MEDS: LACTATED RINGERS 1,000 ML IV SCH (09:48)
[2021-01-14] MEDS: INSULIN LISPRO 100 UNIT/ML SUBCUT SCH ×4 (10:55→21:43)
[2021-01-14] MEDS: MULTIVITAMIN (BEROCCA) TABLET PO SCH (11:06)
[2021-01-14] MEDS: LOSARTAN 50 MG TABLET PO SCH (11:06)
[2021-01-14] MEDS: MENTHOL/ZINC OXIDE OINT 71 GM JAR TOP SCH ×2 (11:06→21:43)
[2021-01-14] MEDS: PANTOPRAZOLE 40 MG VIAL IV SCH ×2 (11:06→21:43)
[2021-01-14] MEDS: DOCUSATE SODIUM 100 MG CAPSULE PO SCH ×2 (11:06→21:43)
[2021-01-14] MEDS: POLYETHYLENE GLYCOL POWDER 17 GM PACK PO SCH ×2 (11:07→21:43)
[2021-01-14] MEDS ORDERED: GLUCAGON 1 MG VIAL IM PRN (11:38)
[2021-01-14] MEDS ORDERED: DEXTROSE 50% 25 GM/50 ML VIAL IV PRN (11:38)
[2021-01-14] MEDS ORDERED: TUBERCULIN SKIN TEST 0.1 ML SYRINGE INTRADERM ONE (12:00)
[2021-01-15 05:41] LABS: Basophils # 0.1 10*3/uL (0.0-0.2); Basophils % 0.9 % (0.0-0.8); Eosinophils # 0.3 10*3/uL (0.0-0.87); Eosinophils % 3.1 % (0.00-10.9); Hematocrit 31.2 VOL% (35.7-47.0); Immature Granulocytes % 0.5 %; Immature Granulocytes Absolute 0.05 #; Lymphocytes # 1.5 10*3/uL (1.4-4.0); Lymphocytes % 14.9 % (21.3-54.2); Mean Corpuscular Volume 89.1 FL (87-102); Mean Platelet Volume 8.7 FL (9.6-12.0); Neutrophils % 73.6 % (38.7-73.9); Platelet Count 375 T/CUMM (130-400); Red Cell Distribution Width 14.7 % (9.3-17.3); White Blood Count 10.1 T/CUMM (4-12)
[2021-01-15 05:43] LABS: Hemoglobin 10.3 GM/DL (12.0-16.0)
[2021-01-15 05:44] LABS: Osmolality,Calculated 272.7 MOS/KG (273-304); Potassium 4.1 MMOL/L (3.5-5.1)
[2021-01-15] MEDS: INSULIN LISPRO 100 UNIT/ML SUBCUT SCH ×4 (07:41→20:57)
[2021-01-15] MEDS: DOCUSATE SODIUM 100 MG CAPSULE PO SCH ×2 (09:10→20:56)
[2021-01-15] MEDS: MULTIVITAMIN (BEROCCA) TABLET PO SCH (09:10)
[2021-01-15] MEDS: LOSARTAN 50 MG TABLET PO SCH (09:10)
[2021-01-15] MEDS: PANTOPRAZOLE 40 MG VIAL IV SCH (09:10)
[2021-01-15] MEDS: POLYETHYLENE GLYCOL POWDER 17 GM PACK PO SCH ×2 (09:11→20:56)
[2021-01-15] MEDS: MENTHOL/ZINC OXIDE OINT 71 GM JAR TOP SCH ×2 (09:11→20:57)
[2021-01-15] MEDS: LACTATED RINGERS 1,000 ML IV SCH (10:37)
[2021-01-15] MEDS: SODIUM CHLOR 0.9% KCL 20 MEQ 20 MEQ/1,000 ML BAG IV SCH ×2 (11:22→18:30)
[2021-01-15] MEDS: PANTOPRAZOLE 40 MG TABLET PO SCH (20:56)
[2021-01-16] MEDS: INSULIN LISPRO 100 UNIT/ML SUBCUT SCH ×4 (07:35→20:02)
[2021-01-16] MEDS: LOSARTAN 50 MG TABLET PO SCH (08:32)
[2021-01-16] MEDS: POLYETHYLENE GLYCOL POWDER 17 GM PACK PO SCH ×2 (08:32→20:01)
[2021-01-16] MEDS: MULTIVITAMIN (BEROCCA) TABLET PO SCH (08:32)
[2021-01-16] MEDS: DOCUSATE SODIUM 100 MG CAPSULE PO SCH ×2 (08:32→20:01)
[2021-01-16] MEDS: PANTOPRAZOLE 40 MG TABLET PO SCH ×2 (08:32→20:01)
[2021-01-16] MEDS: MENTHOL/ZINC OXIDE OINT 71 GM JAR TOP SCH ×2 (08:35→20:00)
[2021-01-16] MEDS: LACTATED RINGERS 1,000 ML IV SCH (09:45)
[2021-01-17] MEDS: POLYETHYLENE GLYCOL POWDER 17 GM PACK PO SCH (09:04)
[2021-01-17] MEDS: MULTIVITAMIN (BEROCCA) TABLET PO SCH (09:05)
[2021-01-17] MEDS: PANTOPRAZOLE 40 MG TABLET PO SCH (09:05)
[2021-01-17] MEDS: LOSARTAN 50 MG TABLET PO SCH (09:05)
[2021-01-17] MEDS: DOCUSATE SODIUM 100 MG CAPSULE PO SCH (09:05)
[2021-01-17] MEDS: INSULIN LISPRO 100 UNIT/ML SUBCUT SCH (09:14)
[2021-01-17] MEDS: MENTHOL/ZINC OXIDE OINT 71 GM JAR TOP SCH (09:14)
[2021-01-17 12:06] VITALS: BP 169/67
== END 2021-01-17 12:00 | disposition swing bed (61) | DRG 394 ==
LOC: N.ED 08:46 → N.EDINP 12:19 → N.5E 14:51
PROVIDERS: ADMIT Family Medicine; ATTEND Family Medicine

== ENCOUNTER 2021-02-23 14:40 | Inpatient (IN) ==
[2021-02-23] MEDS ORDERED: SODIUM CHLORIDE 0.9% 500 ML IV STA (15:24)
[2021-02-23 15:58] LABS: Basophils # 0.1 10*3/uL (0.0-0.2); Basophils % 0.8 % (0.0-0.8); Eosinophils # 0.2 10*3/uL (0.0-0.87); Eosinophils % 1.1 % (0.00-10.9); Hematocrit 39.2 VOL% (35.7-47.0); Hemoglobin 12.9 GM/DL (12.0-16.0); Immature Granulocytes % 0.5 %; Immature Granulocytes Absolute 0.07 #; Lymphocytes # 1.8 10*3/uL (1.4-4.0); Lymphocytes % 13.6 % (21.3-54.2); Mean Corpuscular HGB Conc 32.9 GM/DL (32-36); Mean Corpuscular Volume 86.9 FL (87-102); Mean Platelet Volume 8.6 FL (9.6-12.0); Monocytes % 4.6 % (1.7-12.7); Neutrophils % 79.4 % (38.7-73.9); Platelet Count 545 T/CUMM (130-400); Red Blood Count 4.51 MC/CUMM (3.8-5.5); Red Cell Distribution Width 13.9 % (9.3-17.3); White Blood Count 13.4 T/CUMM (4-12)
[2021-02-23] MEDS ORDERED: ONDANSETRON 4 MG/2 ML VIAL IV PRN (16:14)
[2021-02-23] MEDS ORDERED: ACETAMINOPHEN 325 MG TABLET PO PRN (16:14)
[2021-02-23 16:24] LABS: Albumin 2.7 G/DL (3.4-5.0); Bilirubin,Total 0.6 MG/DL (0.20-1.00); Calcium 10.1 MG/DL (8.5-10.1); Osmolality,Calculated 268.4 MOS/KG (273-304); Potassium 4.4 MMOL/L (3.5-5.1); Total Protein 7.1 G/DL (6.4-8.2)
[2021-02-23] MEDS ORDERED: ZALEPLON 5 MG CAPSULE PO PRN (17:48)
[2021-02-23] MEDS: SODIUM CHLORIDE 0.9% 1,000 ML IV SCH (18:41)
[2021-02-23 19:25] LABS: Hematocrit 42.2 VOL% (35.7-47.0); Hemoglobin 13.4 GM/DL (12.0-16.0)
[2021-02-23 19:49] LABS: PT Patient Result 71.8 SECS (10.5-12.0)
[2021-02-23 19:52] LABS: INR 7.4
[2021-02-23] MEDS: DOCUSATE SODIUM 100 MG CAPSULE PO SCH (20:48)
[2021-02-23 23:12] LABS: Hematocrit 30.4 VOL% (35.7-47.0)
[2021-02-23 23:21] LABS: Hemoglobin 10.1 GM/DL (12.0-16.0)
[2021-02-24] MEDS: SODIUM CHLORIDE 0.9% 1,000 ML IV SCH (04:48)
[2021-02-24 05:21] LABS: Basophils # 0.1 10*3/uL (0.0-0.2); Basophils % 0.8 % (0.0-0.8); Eosinophils % 0.4 % (0.00-10.9); Hematocrit 23.7 VOL% (35.7-47.0); Immature Granulocytes % 0.7 %; Immature Granulocytes Absolute 0.07 #; Lymphocytes # 1.7 10*3/uL (1.4-4.0); Lymphocytes % 16.7 % (21.3-54.2); Mean Corpuscular HGB Conc 32.5 GM/DL (32-36); Mean Corpuscular Volume 88.4 FL (87-102); Mean Platelet Volume 9.1 FL (9.6-12.0); Monocytes % 5.4 % (1.7-12.7); Red Cell Distribution Width 13.8 % (9.3-17.3)
[2021-02-24 05:51] LABS: Alanine Aminotransferase < 6 U/L (13-56); Albumin 1.4 G/DL (3.4-5.0); Alkaline Phosphatase 41 U/L (45-117); Aspartate Amino Transferase 18 U/L (0-37); Blood Urea Nitrogen 12 MG/DL (7-18); Calcium 6.6 MG/DL (8.5-10.1); Carbon Dioxide 17 MMOL/L (21-32); Estimated Glom Filtration Rate 128 ML/MIN; Glucose 85 MG/DL (74-106); Osmolality,Calculated 284.8 MOS/KG (273-304); Potassium 3.4 MMOL/L (3.5-5.1); Sodium 144 MMOL/L (136-145); Thyroid Stimulating Hormone 0.512 uIU/ml (0.358-3.74); Total Protein 4.2 G/DL (6.4-8.2)
[2021-02-24 05:54] LABS: Hemoglobin 7.7 GM/DL (12.0-16.0); Platelet Count 358 T/CUMM (130-400); Red Blood Count 2.68 MC/CUMM (3.8-5.5)
[2021-02-24] MEDS: LOSARTAN 50 MG TABLET PO SCH (08:34)
[2021-02-24] MEDS: PANTOPRAZOLE 40 MG TABLET PO SCH (08:34)
[2021-02-24] MEDS: DOCUSATE SODIUM 100 MG CAPSULE PO SCH ×2 (08:49→21:24)
[2021-02-24 09:09] LABS: PT Patient Result 11.1 SECS (10.5-12.0)
[2021-02-24 09:22] LABS: Hematocrit 30.2 VOL% (35.7-47.0); Hemoglobin 10.1 GM/DL (12.0-16.0)
[2021-02-24] MEDS: MAGNESIUM SULF INJ 2 GM, POTASSIUM CHLORIDE INJ 20 MEQ in SODIUM CHLORIDE 0.9% 1,000 ML IV SCH ×3 (10:30→19:01)
[2021-02-24 16:51] LABS: Hematocrit 28.6 VOL% (35.7-47.0); Hemoglobin 9.6 GM/DL (12.0-16.0)
[2021-02-24 23:23] LABS: Hematocrit 26.5 VOL% (35.7-47.0); Hemoglobin 8.8 GM/DL (12.0-16.0)
[2021-02-25] MEDS: MAGNESIUM SULF INJ 2 GM, POTASSIUM CHLORIDE INJ 20 MEQ in SODIUM CHLORIDE 0.9% 1,000 ML IV SCH ×2 (03:50→18:55)
[2021-02-25 05:13] LABS: Basophils # 0.1 10*3/uL (0.0-0.2); Basophils % 0.5 % (0.0-0.8); Eosinophils # 0.1 10*3/uL (0.0-0.87); Eosinophils % 0.7 % (0.00-10.9); Hematocrit 25.8 VOL% (35.7-47.0); Hemoglobin 8.4 GM/DL (12.0-16.0); Immature Granulocytes % 0.5 %; Immature Granulocytes Absolute 0.05 #; Lymphocytes # 1.9 10*3/uL (1.4-4.0); Lymphocytes % 17.1 % (21.3-54.2); Mean Corpuscular HGB Conc 32.6 GM/DL (32-36); Mean Corpuscular Volume 87.2 FL (87-102); Mean Platelet Volume 8.9 FL (9.6-12.0); Monocytes % 7.3 % (1.7-12.7); Neutrophils % 73.9 % (38.7-73.9); Platelet Count 421 T/CUMM (130-400); Red Blood Count 2.96 MC/CUMM (3.8-5.5); Red Cell Distribution Width 13.8 % (9.3-17.3)
[2021-02-25 05:14] LABS: Hematocrit 25.5 VOL% (35.7-47.0); Hemoglobin 8.4 GM/DL (12.0-16.0)
[2021-02-25 05:16] LABS: PT Patient Result 10.9 SECS (10.5-12.0)
[2021-02-25 05:39] LABS: Bilirubin,Total 0.6 MG/DL (0.20-1.00); Calcium 9.2 MG/DL (8.5-10.1); Osmolality,Calculated 277.5 MOS/KG (273-304); Potassium 4.8 MMOL/L (3.5-5.1); Total Protein 5.4 G/DL (6.4-8.2)
[2021-02-25] MEDS ORDERED: LACTATED RINGERS 1,000 ML IV SCH (08:00)
[2021-02-25] MEDS: LOSARTAN 50 MG TABLET PO SCH (08:21)
[2021-02-25] MEDS ORDERED: ETOMIDATE 20 MG/10 ML VIAL IV ONE (10:05)
[2021-02-25] MEDS ORDERED: propofoL 200 MG/20 ML VIAL IV ONE (10:05)
[2021-02-25] MEDS ORDERED: LIDOCAINE 2% 5 ML VIAL ONE (10:05)
[2021-02-25 11:32] LABS: Hematocrit 29.4 VOL% (35.7-47.0); Hemoglobin 9.5 GM/DL (12.0-16.0)
[2021-02-25] MEDS: DOCUSATE SODIUM 100 MG CAPSULE PO SCH ×2 (12:52→21:21)
[2021-02-25] MEDS: PANTOPRAZOLE 40 MG TABLET PO SCH (12:52)
[2021-02-25 16:12] LABS: Hematocrit 29.6 VOL% (35.7-47.0); Hemoglobin 9.6 GM/DL (12.0-16.0)
[2021-02-25 22:55] LABS: Hematocrit 34.6 VOL% (35.7-47.0); Hemoglobin 10.2 GM/DL (12.0-16.0)
[2021-02-26] MEDS: MAGNESIUM SULF INJ 2 GM, POTASSIUM CHLORIDE INJ 20 MEQ in SODIUM CHLORIDE 0.9% 1,000 ML IV SCH ×3 (00:17→17:24)
[2021-02-26 05:28] LABS: Basophils # 0.1 10*3/uL (0.0-0.2); Basophils % 0.5 % (0.0-0.8); Eosinophils # 0.1 10*3/uL (0.0-0.87); Eosinophils % 0.6 % (0.00-10.9); Hematocrit 26.4 VOL% (35.7-47.0); Hemoglobin 8.5 GM/DL (12.0-16.0); Immature Granulocytes % 0.5 %; Immature Granulocytes Absolute 0.06 #; Lymphocytes # 1.7 10*3/uL (1.4-4.0); Lymphocytes % 12.9 % (21.3-54.2); Mean Corpuscular HGB Conc 32.2 GM/DL (32-36); Mean Corpuscular Volume 88.6 FL (87-102); Mean Platelet Volume 9.4 FL (9.6-12.0); Monocytes % 6.6 % (1.7-12.7); Neutrophils % 78.9 % (38.7-73.9); Platelet Count 425 T/CUMM (130-400); Red Blood Count 2.98 MC/CUMM (3.8-5.5); Red Cell Distribution Width 13.7 % (9.3-17.3); White Blood Count 12.8 T/CUMM (4-12)
[2021-02-26 05:46] LABS: Calcium 9.3 MG/DL (8.5-10.1); Osmolality,Calculated 271.8 MOS/KG (273-304); Potassium 4.6 MMOL/L (3.5-5.1)
[2021-02-26] MEDS: PANTOPRAZOLE 40 MG TABLET PO SCH (09:21)
[2021-02-26] MEDS: LOSARTAN 50 MG TABLET PO SCH (09:21)
[2021-02-26] MEDS: DOCUSATE SODIUM 100 MG CAPSULE PO SCH ×2 (09:21→20:26)
[2021-02-27 05:29] LABS: Basophils % 0.3 % (0.0-0.8); Eosinophils # 0.1 10*3/uL (0.0-0.87); Eosinophils % 0.9 % (0.00-10.9); Hematocrit 26.3 VOL% (35.7-47.0); Hemoglobin 8.6 GM/DL (12.0-16.0); Immature Granulocytes % 0.7 %; Immature Granulocytes Absolute 0.09 #; Lymphocytes # 1.8 10*3/uL (1.4-4.0); Lymphocytes % 13.9 % (21.3-54.2); Mean Corpuscular HGB Conc 32.7 GM/DL (32-36); Mean Corpuscular Volume 88.3 FL (87-102); Mean Platelet Volume 9.1 FL (9.6-12.0); Monocytes % 6.1 % (1.7-12.7); Neutrophils % 78.1 % (38.7-73.9); Platelet Count 413 T/CUMM (130-400); Red Blood Count 2.98 MC/CUMM (3.8-5.5); Red Cell Distribution Width 13.7 % (9.3-17.3); White Blood Count 12.6 T/CUMM (4-12)
[2021-02-27 05:43] LABS: Calcium 9.3 MG/DL (8.5-10.1); Osmolality,Calculated 273.8 MOS/KG (273-304); Potassium 4.4 MMOL/L (3.5-5.1)
[2021-02-27] MEDS: PANTOPRAZOLE 40 MG TABLET PO SCH (10:04)
[2021-02-27] MEDS: LOSARTAN 50 MG TABLET PO SCH (10:04)
[2021-02-27] MEDS: DOCUSATE SODIUM 100 MG CAPSULE PO SCH ×2 (10:04→21:55)
[2021-02-27] MEDS ORDERED: SODIUM CHLOR 0.9% KCL 20 MEQ 20 MEQ/1,000 ML BAG IV SCH (13:00)
[2021-02-27] MEDS: MAGNESIUM SULF INJ 2 GM, POTASSIUM CHLORIDE INJ 20 MEQ in SODIUM CHLORIDE 0.9% 1,000 ML IV SCH ×2 (13:06→13:10)
[2021-02-27] MEDS: SODIUM CHLOR 0.9% KCL 20 MEQ 20 MEQ/1,000 ML BAG IV SCH (13:18)
[2021-02-28] MEDS: SODIUM CHLOR 0.9% KCL 20 MEQ 20 MEQ/1,000 ML BAG IV SCH (02:40)
[2021-02-28] MEDS: PANTOPRAZOLE 40 MG TABLET PO SCH (08:29)
[2021-02-28] MEDS: LOSARTAN 50 MG TABLET PO SCH (08:29)
[2021-02-28] MEDS: DOCUSATE SODIUM 100 MG CAPSULE PO SCH (08:29)
[2021-02-28 11:12] VITALS: BP 144/61
== END 2021-02-28 11:14 | DRG 394 ==
LOC: EDUNIT# → EDBD → N.ED 14:40 → N.EDINP 16:13 → N.5E 16:59
PROVIDERS: ADMIT Family Medicine; ATTEND Family Medicine